=== PATIENT | male | born 1990 | race Caucasian/White ===

== ENCOUNTER 2018-07-21 09:39 | Emergency (ER) | payer OTHER ==
[~2018-07-21] VITALS: Ht 185.4 cm; Wt 93.0 kg
--- OUTSIDE RECORDS SUMMARY | ~2018-07-21 | XMS | Clinical Summary ---
Demographics + + + | Address | [address] | | | [place] [address] | + + + | Home Phone | | + + + | Preferred Language | Unknown | + + + | Marital Status | Single | + + + | Uatsdin Affiliation | Unknown | + + + | Race | Unknown | + + + | Ethnic Group | Unknown | + + + Author + + + | Author | [facility] | + + + | Organization | [facility] | + + + | Address | Unknown | + + + | Phone | Unavailable | + + + Support + + +---------+ + | Name | Relationship | Address | Phone | + + +---------+ + | Detailed,Message | ECON | Unknown | | + + +---------+ + | Faith Farooq | ECON | Unknown | | + + +---------+ + | Darrel Farooq | ECON | Unknown | | + + +---------+ + Care Team Providers + +------+ + | Care Automatic Gluing Machine Operator Name | Role | Phone | + +------+ + | Dr. Herman | PP | Unavailable | + +------+ + Allergies No Known Allergies Current Medications + + +-------+---------+------+------+-------+ | Prescription | Sig. | Disp. | Refills | Star | End | Statu | | | | | | t | Date | s | | | | | | Date | | | + + +-------+---------+------+------+-------+ | naproxen sodium | Take 220 mg by mouth | | | | | Activ | | (ANAPROX) 220 MG | 2 (two) times daily | | | | | e | | tablet | with meals. | | | | | | + + +-------+---------+------+------+-------+ Active Problems No known active problems Family History + +------+--------+ + | Relation | Name | Status | Comments | + +------+--------+ + | Father | | Alive | | + +------+--------+ + | Mother | | Alive | | + +------+--------+ + Social History + +-------+ +--------+------+ | Tobacco Use | Types | Packs/Day | Years | Date | | | | | Used | | + +-------+ +--------+------+ | Never Smoker | | | | | + +-------+ +--------+------+ + + + | Sex Assigned at | Date Recorded | | | | + + + | Not on file | | + + + Last Filed Vital Signs + + + + | Vital Sign | Reading | Time Taken | + + + + | Blood Pressure | 104/68 | 02/23/2015 10:55 AM PDT | + + + + | Pulse | 114 | 02/23/2015 10:55 AM PDT | + + + + | Temperature | 37.9 C (100.2 F) | 02/23/2015 10:55 AM PDT | + + + + | Respiratory Rate | 20 | 02/23/2015 10:55 AM PDT | + + + + | Oxygen Saturation | 98% | 02/23/2015 10:55 AM PDT | + + + + | Inhaled Oxygen | - | - | | Concentration | | | + + + + | Weight | 86.2 kg (190 lb) | 02/23/2015 10:55 AM PDT | + + + + | Height | 185.4 cm (6' 1") | 02/23/2015 10:55 AM PDT | + + + + | Body Mass Index | 25.07 | 02/23/2015 10:55 AM PDT | + + + + Plan of Treatment + + + + + | Health Maintenance | Due Date | Last Done | Comments | + + + + + | Vaccine: | | | | | Dtap/Tdap/Td (1 - | 7 | | | | Tdap) | | | | + + + + + | Vaccine: Influenza | | | | | (#1) | 8 | | | + + + + + Results Not on filefrom Last 3 Months
--- OUTSIDE RECORDS SUMMARY | ~2018-07-21 | XMS | Clinical Summary ---
Demographics + + + | Address | [address] | | | [place] [address] | + + + | Home Phone | | + + + | Preferred Language | Unknown | + + + | Marital Status | Single | + + + | Taoism Affiliation | Unknown | + + + | Race | Unknown | + + + | Ethnic Group | Unknown | + + + Author + + + | Author | [facility] | + + + | Organization | [facility] | + + + | Address | [...] Team Providers + +------+ + | Care Help Desk Consultant Name | Role | Phone | + [...]
[2018-07-21] MEDS ORDERED: METHYLPREDNISOLO4 M1 PO (10:17)
[2018-07-21] MEDS ORDERED: BACLOFEN10 MG PO (10:17)
[2018-07-21] MEDS ORDERED: NORCO 5-325 TA1 EACH PO (10:17)
== END 2018-07-21 10:30 | disposition home or self-care (01) ==
LOC: ED 09:39
DX: M99.03 Segmental and somatic dysfunction of lumbar region (principal); M99.02 Segmental and somatic dysfunction of thoracic region; F17.200 Nicotine dependence, unspecified, uncomplicated
CPT/HCPCS: 99283

== ENCOUNTER 2020-07-06 12:01 | Emergency (ER) | payer SELFPAY ==
[~2020-07-06] VITALS: Ht 185.4 cm; Wt 93.0 kg
[~2020-07-06 12:01] MED LIST: BACLOFEN10 MG PO; METHYLPREDNISOLO4 M1 PO; NORCO 5-325 TA1 EACH PO
--- OUTSIDE RECORDS SUMMARY | 2020-07-06 12:06 | XMS ---
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 Lachelle has no Care Guidelines for this patient. Care History Medical/Surgical 07/22/2018 [facility] - W RECEIVED CASE MANAGEMENT CONSULT-HELP PATIENT WITH PCP SET UP. - PATIENT DID NOT ANSWER - VOICEMAIL LEFT. - CHW SENT PATIENT NO PCP LETTER. E.D. VISIT COUNT (12 MO.) [address] [place] [address] TOTAL 1 NOTE: Visits indicate total known visits. ED/UCC VISIT TRACKING (12 MO.) 07/06/2020 12:01 [facility] TYPE: Emergency COMPLAINT: - DENTAL PROBLEM INPATIENT VISIT TRACKING (12 MO.) No inpatient visits to display in this time frame [email or web address]
[2020-07-06] MEDS ORDERED: ULTRAM50 MG PO (12:25)
[2020-07-06] MEDS ORDERED: PENICILLIN V P500 MG PO (12:25)
== END 2020-07-06 12:39 | disposition home or self-care (01) ==
LOC: ED 12:01
DX: K02.9 Dental caries, unspecified (principal); J45.909 Unspecified asthma, uncomplicated; F17.200 Nicotine dependence, unspecified, uncomplicated
CPT/HCPCS: 99282

== ENCOUNTER 2020-08-20 16:39 | Emergency (ER) | payer SELFPAY ==
[~2020-08-20] VITALS: Ht 185.4 cm; Wt 93.0 kg
[~2020-08-20 16:39] MED LIST changes: +PENICILLIN V P500 MG PO; +ULTRAM50 MG PO
--- OUTSIDE RECORDS SUMMARY | 2020-08-20 16:42 | XMS ---
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 Lachelle has no Care Guidelines for this patient. Care History Medical/Surgical 07/22/2018 [facility] - W RECEIVED CASE MANAGEMENT CONSULT-HELP PATIENT WITH PCP SET UP. - PATIENT DID NOT ANSWER - VOICEMAIL LEFT. - CHW SENT PATIENT NO PCP LETTER. E.D. VISIT COUNT (12 MO.) 2 [facility] TOTAL 2 NOTE: Visits indicate total known visits. ED/UCC VISIT TRACKING (12 MO.) 08/20/2020 16:40 [facility] TYPE: Emergency COMPLAINT: - INFECTION ON R SIDE OF STOMACH 07/06/2020 12:01 [facility] TYPE: Emergency COMPLAINT: - DENTAL PROBLEM DIAGNOSES: - Nicotine dependence, unspecified, uncomplicated - Unspecified asthma, uncomplicated - Dental caries, unspecified INPATIENT VISIT TRACKING (12 MO.) No inpatient visits to display in this time frame [email or web address]
[2020-08-20] MEDS ORDERED: BACTRIM DS TAB1 EACH PO (18:00)
== END 2020-08-20 18:10 | disposition home or self-care (01) ==
LOC: ED 16:39
DX: L02.211 Cutaneous abscess of abdominal wall (principal); L03.311 Cellulitis of abdominal wall; J45.909 Unspecified asthma, uncomplicated; F17.200 Nicotine dependence, unspecified, uncomplicated
CPT/HCPCS: 99283

== ENCOUNTER 2021-07-08 12:57 | Emergency (ER) | payer OTHER ==
[~2021-07-08] VITALS: Ht 185.4 cm; Wt 101.0 kg
[~2021-07-08 12:57] MED LIST changes: +BACTRIM DS TAB1 EACH PO
--- OUTSIDE RECORDS SUMMARY | 2021-07-08 13:01 | XMS ---
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 Lachelle has no Care Guidelines for this patient. Care History Medical/Surgical 08/22/2020 [facility] - W CALLED PATIENT- WENT STRAIGHT TO VOICEMAIL - NO PCP LETTER SENT 07/22/2018 [facility] - W RECEIVED CASE MANAGEMENT CONSULT-HELP PATIENT WITH PCP SET UP. - PATIENT DID NOT ANSWER - VOICEMAIL LEFT. - W SENT PATIENT NO PCP LETTER. E.D. VISIT COUNT (12 MO.) 2 [facility]. TOTAL 2 NOTE: Visits indicate total known visits. ED/C VISIT TRACKING (12 MO.) 07/08/2021 12:58 [facility] TYPE: Emergency COMPLAINT: - R SIDE RIB PAIN 08/20/2020 16:40 [facility] TYPE: Emergency COMPLAINT: - STOMACH PAIN DIAGNOSES: - Unspecified asthma, uncomplicated - Nicotine dependence, unspecified, uncomplicated - Cutaneous abscess of abdominal wall - Cellulitis of abdominal wall INPATIENT VISIT TRACKING (12 MO.) No inpatient visits to display in this time frame [email or web address]
[2021-07-08] MEDS ORDERED: ADVIL200 M1 (13:18)
== END 2021-07-08 20:08 | disposition home or self-care (01) ==
LOC: ED 12:57
DX: R10.31 Right lower quadrant pain (principal); J45.909 Unspecified asthma, uncomplicated; F17.200 Nicotine dependence, unspecified, uncomplicated; Z79.899 Other long term (current) drug therapy
CPT/HCPCS: 36415; 71101; 74177; 76705; 80053; 83690; 85025; 85379; 99284-25

== ENCOUNTER 2021-09-10 23:02 | Emergency (ER) | payer OTHER ==
[~2021-09-10] VITALS: Ht 185.4 cm; Wt 102.9 kg
[~2021-09-10 23:02] MED LIST changes: +ADVIL200 M1
--- OUTSIDE RECORDS SUMMARY | 2021-09-10 23:04 | XMS ---
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 Lachelle has no Care Guidelines for this patient. Care History Medical/Surgical 08/22/2020 [facility] [place] - W CALLED PATIENT- WENT STRAIGHT TO VOICEMAIL - NO PCP LETTER SENT 07/22/2018 [facility] - W RECEIVED CASE MANAGEMENT CONSULT-HELP PATIENT WITH PCP SET UP. - PATIENT DID NOT ANSWER - VOICEMAIL LEFT. - W SENT PATIENT NO PCP LETTER. E.D. VISIT COUNT (12 MO.) 2 [facility]. TOTAL 2 NOTE: Visits indicate total known visits. ED/C VISIT TRACKING (12 MO.) 09/10/2021 23:03 [facility] TYPE: Emergency COMPLAINT: - FLU SYMPTOMS 07/08/2021 12:58 [facility] TYPE: Emergency COMPLAINT: - R SIDE RIB PAIN DIAGNOSES: - Right upper quadrant pain - Unspecified asthma, uncomplicated - Other residential (current) drug therapy - Right lower quadrant pain - Nicotine dependence, unspecified, uncomplicated INPATIENT VISIT TRACKING (12 MO.) No inpatient visits to display in this time frame [email or web address]
[2021-09-11] MEDS ORDERED: CYCLOBENZAPRINE10 MG PO (01:57)
== END 2021-09-11 02:13 | disposition home or self-care (01) ==
LOC: ED 23:02
DX: B34.9 Viral infection, unspecified (principal); Z20.822 Contact with and (suspected) exposure to COVID-19; J45.909 Unspecified asthma, uncomplicated; F17.200 Nicotine dependence, unspecified, uncomplicated; Z79.899 Other long term (current) drug therapy
CPT/HCPCS: 71045; 87502; 96372; 99283-25; J1885; U0003

== ENCOUNTER 2023-07-06 07:50 | Emergency (ER) | payer OTHER ==
[~2023-07-06] VITALS: Ht 185.4 cm; Wt 104.6 kg
[~2023-07-06 07:50] MED LIST changes: +CYCLOBENZAPRINE10 MG PO
[2023-07-06] MEDS ORDERED: PENICILLIN V P500 MG PO (08:07)
[2023-07-06 08:15] VITALS: BP 137/86
[2023-07-06] MEDS ORDERED: PENICILLIN V POTASSIUM 500 MG TAB PO ONE (08:15)
== END 2023-07-06 08:22 | disposition home or self-care (01) ==
LOC: ED 07:50
DX: K04.7 Periapical abscess without sinus (principal); J45.909 Unspecified asthma, uncomplicated; F17.200 Nicotine dependence, unspecified, uncomplicated